=== PATIENT | male | born 1950 | race Caucasian/White ===

== ENCOUNTER 2020-01-04 12:02 | Outpatient (CLI) | payer MEDICARE, OTHER, SELFPAY ==
--- NOTE | 2020-01-04 12:57 | ECG_ITS ---
Measurements Intervals [place] Rate: 63 P: 42 OR: 209 QRS: -44 QRSD: 103 T: 34 QT: 408 QTc: 419 Interpretive Statements SINUS RHYTHM VENTRICULAR PREMATURE COMPLEXES LEFT AXIS DEVIATION BORDERLINE AV CONDUCTION DELAY BORDERLINE R WAVE PROGRESSION, ANTERIOR LEADS BASELINE ARTIFACT- I, II, III, AVR, AVF BORDERLINE ECG Electronically Signed On 01-04-2020 13:22:10 YARN BLEACHING MACHINE OPERATOR by Elijah Stinson D.O.
[2020-01-04 13:29] LABS: Basophils Absolute Auto 0.1 K/mm3 (0.0-0.1); Basophils Percent Auto 0.8 % (0.2-1.2); Eosinophils Absolute Auto 0.2 K/mm3 (0-0.3); Eosinophils Percent Auto 2.4 % (0-4.4); Hematocrit 44.1 % (42.0-52.0); Hemoglobin 14.4 g/dL (14.0-18.0); Immature Granulocyte Absolute 0.04 K/mm3 (0.00-0.031); Immature Granulocyte Percent A 0.4 % (0-0.5); Lymphocytes Percent Auto 25.2 % (18.3-44.2); Mean Corpuscular HGB Conc 32.7 g/dl (32-36); Mean Corpuscular Hemoglobin 28.6 pg (26-34); Mean Corpuscular Volume 87.7 fl (80-100); Mean Platelet Volume 9.3 fl (7.4-10.4); Monocytes Absolute Auto 0.6 K/mm3 (0.1-0.6); Monocytes Percent Auto 6.3 % (2.6-8.5); Neutrophils Absolute Auto 6.2 K/mm3 (1.3-6.7); Neutrophils Percent Auto 64.9 % (45.5-73.1); Platelet Count Result 246 k/mm3 (150-375); Red Blood Count 5.03 M/mm3 (4.6-6.20); White Blood Count 9.5 K/mm3 (4.5-10.0)
[2020-01-04 13:38] LABS: INR 2.3; Partial Thromboplastin Time 30.9 SECONDS (22.3-36.8); Prothrombin Time 25.8 Seconds (11.1-14.7)
[2020-01-04 13:39] LABS: Albumin Level 4.2 g/dL (3.5-5.1); Anion Gap 4 mmol/L (8-16); Blood Urea Nitrogen 22 mg/dL (9-20); Calcium 9.2 mg/dL (8.4-10.2); Carbon Dioxide 33 mmol/L (22-30); Chloride 103 mmol/L (98-107); Estimated Glomerular Filt Rate > 60; Glucose 83 mg/dL (75-110); Potassium 3.8 mmol/L (3.4-5.0); Sodium 140 mmol/L (137-145)
[2020-01-04 13:52] LABS: Hemoglobin A1C 5.8 % (<5.7)
[2020-01-04 14:02] LABS: Add Urine Microscopic? NO; Appearance Urine Clear (Clear); Bilirubin Urine Negative (Negative); Blood Urine Negative (Negative); Color Urine Yellow (Yellow); Glucose Urine UA Negative (Negative); Ketones Urine Negative (Negative); Leukocyte Esterase Ur Negative LEU/UL (Negative); Nitrate Urine Negative (Negative); Protein Urine Negative (Negative); Specific Grav Ur 1.023 (1.001-1.035); Urobilinogen Urine Negative mg/dL (<2.0)
[2020-01-04 14:08] LABS: Urine Cotinine NEGATIVE
== END 2020-01-04 12:03 | disposition home or self-care (01) ==
PROVIDERS: PCP Family Medicine; Visit Provider Orthopaedic Surgery
DX: M17.12 Unilateral primary osteoarthritis, left knee (principal); Z01.818 Encounter for other preprocedural examination; R94.31 Abnormal electrocardiogram [ECG] [EKG]
CPT/HCPCS: 80048; 80307; 81003; 82040; 83036; 85025; 85610; 85730; 86850; 86900; 86901; 87081; 93005

== ENCOUNTER 2020-01-06 13:08 | Emergency (ER) | payer MEDICARE, OTHER, SELFPAY ==
--- NOTE | ~2020-01-06 | XR_ITS ---
EXAMINATION: XR shoulder LT min 2V EXAM DATE: 01/06/2020 13:49 INDICATION: left shoulder pain after a fall today, pain on anterior/lat. . Initial encounter. TECHNIQUE: The following left shoulder projections obtained: frontal projection with internal rotatio n, frontal projection with external rotation, Grashey, and axillary (4+ views). There is no prior st udy for comparison. FINDINGS: No evidence of left shoulder rotator cuff calcific tendinosis. There is mild glenohumera l, moderate acromioclavicular joint primary osteoarthritis. There are no acute fractures or dislocati ons identified. There is no subcutaneous gas. The soft tissue is unremarkable. There are no radio paque foreign bodies. IMPRESSION: 1. Left shoulder exam without acute osseous findings. 2. Mild to moderate osteoarthritis. Reviewed, dictated and finalized at location B. ETTE
[2020-01-06 13:21] VITALS: BP 142/73; PULSE 78; RESP 20; TEMP 36.1; O2SAT 100
--- NOTE | 2020-01-06 13:26 | ED.GENADULT ---
HPI - General Adult General Chief complaint: Extremity Injury, Upper Stated complaint: L/arm pain Time Seen by Provider: 01/06/20 13:27 Source: patient and RN notes reviewed Mode of arrival: ambulatory Limitations: no limitations History of Present Illness HPI narrative: 69-year-old male presents with complaints of left shoulder pain for 1 day. Ta says he fell on left shoulder at 03:00am this morning while going outside with dog, hit LT shoulder on ground (grass). Denies hitting head, loss of consciousness, seizure activity, dizziness, or syncopal episode. Tylenol 2 tablets (last this morning approximately 07:45) without relief. Denies numbness or tingling. Hurts with movement of shoulder. Denies radiating pain. No loss of mobility. No swelling. Exacerbating factor is movement. No relieving factor. The dominant hand is the RIGHT HAND. Remains active. The patient reports he have not been diagnosed with COVID-19. The patient reports he is not waiting for the results of a COVID-19 lab test. The patient reports he do not have fever, chills, weakness, or fatigue. The patient reports he do not have a new or worsening cough or shortness of breath. Denies chest pain. The patient reports he do not have any rhinorrhea, congestion, loss of taste, sore throat, nausea, vomiting, abdominal pain, and diarrhea. Tolerating po intake well. Denies recent traveling. Denies concerns for COVID-19 or exposures been home with limited outdoor exposure except for essential household needs and return home. At this time, patient is not suspected of having COVID-19. Some parts of this dictation were generated by voice recognition software and may contain typographical and/or grammatical inaccuracies. Related Data Home Medications Medication Instructions Recorded Confirmed atorvastatin 10 mg tablet 10 mg PO DAILY 10/26/19 01/06/20 buspirone 10 mg tablet 10 mg PO TID 10/26/19 01/06/20 clonazepam 0.5 mg tablet 0.5 mg PO PRN PRN 10/26/19 01/06/20 sertraline 50 mg tablet 50 mg PO DAILY 10/26/19 01/06/20 warfarin 3 mg tablet 3 mg PO 4XW tablet 10/26/19 01/06/20 warfarin 4 mg tablet 4 mg PO 3XW tablet 10/26/19 01/06/20 enoxaparin 80 mg/0.8 mL 70 mg SUBCUT Q12H 01/04/20 01/06/20 subcutaneous syringe omeprazole magnesium [Prilosec OTC] 20 mg PO PRN PRN 01/04/20 01/06/20 Allergies Allergy/AdvReac Type Severity Reaction Status Date / Time No Known Allergies Allergy Verified 01/04/20 09:54 Review of Systems Review of Systems: Narrative: CONSTITUTIONAL: Denies fever, chills, sweats. EYES: Denies visual changes, redness, discharge. ENT: Denies rhinorrhea, congestion, sore throat, otalgia. CARDIOVASCULAR: Denies chest pain, palpitations, edema. RESPIRATORY: Denies dyspnea, wheezing, cough. GASTROINTESTINAL: Denies abdominal pain, nausea, vomiting, diarrhea. SKIN: Denies rash or itching. MUSCULOSKELETAL: Denies acute back pain or myalgia. Complains of LT shoulder pain. NEUROLOGIC: Denies numbness or focal weakness. PSYCHIATRIC: Denies anxiety or depression. All other systems reviewed & are unremarkable except as noted in HPI and below. [facility] Past Medical History Medical History (Updated 01/07/20 @ 00:00 by [facility] Dawilliam) Anxiety Cataract DVT of lower limb, acute Factor V Leiden Hernia History of gastroesophageal reflux (GERD) Hypercholesteremia Left knee DJD Panic attacks Vertigo Vision loss Surgical History Surgical History (Updated 01/06/20 @ 14:30 by SVETA Krause) H/O right inguinal hernia repair History of eye surgery LT cataract removed History of total right knee replacement Family History Family History (Updated 01/06/20 @ 13:56 by SVETA Krause) Father , at age 99 Old age Mother , April 03, 1997 Cancer Other Carcinoma of colon Family history of alcoholism Family history of lung cancer Social History Social History (Updated 01/06/20 @ 14
== END 2020-01-06 14:06 | disposition home or self-care (01) ==
PROVIDERS: Emergency Provider Nurse Practitioner Family; PCP Family Medicine
DX: S43.402A Unspecified sprain of left shoulder joint, initial encounter (principal); W19.XXXA Unspecified fall, initial encounter; M19.012 Primary osteoarthritis, left shoulder; F41.9 Anxiety disorder, unspecified; Z98.42 Cataract extraction status, left eye; K21.9 Gastro-esophageal reflux disease without esophagitis; E78.00 Pure hypercholesterolemia, unspecified; Z96.651 Presence of right artificial knee joint; Z79.01 Long term (current) use of anticoagulants
CPT/HCPCS: 73030; 99213; G0463

== ENCOUNTER 2020-01-09 01:08 | Outpatient (CLI) | payer MEDICARE, OTHER, SELFPAY ==
[2020-01-09 22:26] LABS: SARS-CoV-2 RNA PCR Negative
== END 2020-01-09 01:09 | disposition home or self-care (01) ==
LOC: ANHCOVIDDT 01:08
PROVIDERS: PCP Family Medicine; Visit Provider Orthopaedic Surgery
DX: Z01.812 Encounter for preprocedural laboratory examination (principal); Z20.828 Contact with and (suspected) exposure to other viral communicable diseases
CPT/HCPCS: 87635; C9803; U0003

== ENCOUNTER 2020-03-08 09:36 | Outpatient (CLI) | payer MEDICARE, OTHER, SELFPAY ==
--- NOTE | ~2020-03-08 | MR_ITS ---
EXAMINATION: MR shoulder LT wo con DATE: 03/08/2020 10:43 INDICATION: Left shoulder pain. TECHNIQUE: Magnetic resonance imaging (MRI) of the left shoulder was performed without intravenous co ntrast. Sequences included axial PD-weighted FS FSE, coronal oblique PD-weighted FS FSE and T2-weight ed FS FSE, and sagittal oblique T2-weighted FS FSE and T1-weighted FSE. COMPARISON: Left shoulder radiographs 02/29/2020 FINDINGS: Coracoacromial arch: The acromion undersurface is curved in morphology (type II). There is severe acromioclavicular joint osteoarthritis including inferiorly directed osteophytes. There is moderate subacromial/subdeltoid bu rsitis. Rotator cuff: There is a full-thickness tear of supraspinatus and infraspinatus tendons measuring 2.5 cm anterior t o posterior by 2.9 cm proximal to distal. There is mild teres minor tendinopathy. There is severe sub scapularis tendinopathy. There is no asymmetric fatty atrophy of the rotator cuff muscle bellies. The re is edema in supraspinatus muscle belly, consistent with mild strain versus subacute denervation. Biceps tendon and glenoid labrum: Biceps tendon is in bicipital groove. There is mild intra-articular biceps tendinopathy. There is a t ear of superior labrum from 10:00 to 12:00 (SLAP tear). Fluid: There is a moderate-sized glenohumeral joint effusion. Bones/cartilage: There is cartilage surface irregularity of glenoid and humeral head. IMPRESSION: 1. Full-thickness rotator cuff tear. Edema in supraspinatus muscle belly, consistent with mild strain versus subacute denervation. 2. Mild glenohumeral joint chondrosis. SLAP tear. 3. Mild intra-articular biceps tendinopathy. 4. Severe acromioclavicular joint osteoarthritis. 5. Moderate subacromial/subdeltoid bursitis and moderate-sized glenohumeral joint effusion. Reviewed, dictated and finalized at location A. GENERATING MACHINE TENDER IMPRESSION: 1. Full-thickness rotator cuff tear. Edema in supraspinatus muscle belly, consi stent with mild strain versus subacute denervation. 2. Mild glenohumeral joint chondrosis. SLAP tear. 3. Mild intra-articular biceps tendinopathy. 4. Severe acromioclavicular joint osteoarthritis. 5. Moderate subacromial/subdeltoid bursitis and moderate-sized glenohumeral олег nt effusion.
== END 2020-03-08 09:37 | disposition home or self-care (01) ==
PROVIDERS: PCP Family Medicine; Visit Provider Orthopaedic Surgery
DX: M19.012 Primary osteoarthritis, left shoulder (principal); M75.52 Bursitis of left shoulder; M75.122 Complete rotator cuff tear or rupture of left shoulder, not specified as traumatic; S43.432A Superior glenoid labrum lesion of left shoulder, initial encounter; M25.412 Effusion, left shoulder
CPT/HCPCS: 73221

== ENCOUNTER 2020-05-02 11:04 | Outpatient (CLI) | payer MEDICARE, OTHER, SELFPAY ==
[2020-05-02 11:31] LABS: Hematocrit 42.5 % (42.0-52.0)
[2020-05-02 11:40] LABS: Prothrombin Time 14.2 Seconds (11.1-14.7)
[2020-05-02 11:41] LABS: Partial Thromboplastin Time 31.5 SECONDS (22.3-36.8)
[2020-05-02 11:44] LABS: Anion Gap 8 mmol/L (8-16); Blood Urea Nitrogen 20 mg/dL (9-20); Calcium 8.8 mg/dL (8.4-10.2); Carbon Dioxide 29 mmol/L (22-30); Chloride 102 mmol/L (98-107); Estimated Glomerular Filt Rate > 60; Glucose 128 mg/dL (75-110); Potassium 3.9 mmol/L (3.4-5.0); Sodium 139 mmol/L (137-145)
== END 2020-05-02 11:05 | disposition home or self-care (01) ==
PROVIDERS: Anesthesiology; PCP Family Medicine; Visit Provider Orthopaedic Surgery
DX: E11.9 Type 2 diabetes mellitus without complications (principal); D69.9 Hemorrhagic condition, unspecified; D68.51 Activated protein C resistance; Z01.818 Encounter for other preprocedural examination
CPT/HCPCS: 36415; 80048; 85014; 85018; 85610; 85730

== ENCOUNTER → 2020-05-03 00:22 | Outpatient (CLI) | payer MEDICARE, OTHER, SELFPAY ==
[2020-05-03 19:08] LABS: SARS-CoV-2 RNA PCR Negative
== END ==
PROVIDERS: PCP Family Medicine; Visit Provider Orthopaedic Surgery
DX: Z01.812 Encounter for preprocedural laboratory examination (principal); Z20.822 Contact with and (suspected) exposure to COVID-19
CPT/HCPCS: C9803; U0003; U0005

== ENCOUNTER 2020-05-06 00:17 | Day surgery (SDC) | payer MEDICARE, OTHER, SELFPAY ==
[2020-04-29 10:56] VITALS: BMI 24.3
--- NOTE | 2020-05-05 13:45 | WPDANESEPPF ---
Anes - Initial Pre Proc Eval Procedure: Operation Date: 05/06/20 07:30 Proposed Procedures p Left Open Rotator Cuff Repair with Distal Clavicle Excision - Yovany Shepherd MD Date/Time: 05/05/20 13:45 Surgeon: Yovany Shepherd MD Pre Op Diagnosis: left shoulder rotator cuff tear Patient Data Age: 69 Gender: M Height: 1.75 m Weight: 74.85 kg Allergies Allergy/AdvReac Type Severity Reaction Status Date / Time No Known Allergies Allergy Verified 05/06/20 06:04 Home Medications Medication Instructions Recorded Confirmed Type atorvastatin 10 mg tablet 10 mg PO QAM 10/26/19 05/06/20 History buspirone 10 mg tablet 10 mg PO TID 10/26/19 05/06/20 History clonazepam 0.5 mg tablet 0.5 mg PO PRN PRN 10/26/19 04/29/20 History sertraline 50 mg tablet 50 mg PO DAILY 10/26/19 05/06/20 History warfarin 3 mg tablet 3 mg PO 3XW tablet 10/26/19 05/06/20 History warfarin 4 mg tablet 4 mg PO 4XW tablet 10/26/19 05/06/20 History enoxaparin 80 mg/0.8 mL 70 mg SUBCUT Q12H 01/04/20 05/06/20 History subcutaneous syringe omeprazole magnesium [Prilosec OTC] 20 mg PO PRN PRN 01/04/20 04/29/20 History chlorhexidine gluconate 4 % 1 applic TOPICAL ONCE #237 ml 04/04/20 04/29/20 Rx topical liquid metformin 500 mg PO BID 04/29/20 05/06/20 History Patient hx anesthesia problems: none Family hx anesthesia problems: none PMFSH Past Medical History Medical History (Updated 05/05/20 @ 13:46 by Nahum Kuo MD) Anxiety Cataract Diabetes DVT of lower limb, acute Factor V Leiden Hernia History of gastroesophageal reflux (GERD) Hypercholesteremia Left knee DJD Left shoulder pain Panic attacks Vertigo Vision loss Surgical History Surgical History H/O right inguinal hernia repair History of eye surgery LT cataract removed History of total right knee replacement Family History Family History Father , at age 99 Old age Mother , April 03, 1997 Cancer Other Carcinoma of colon Family history of alcoholism Family history of lung cancer Social History Social History Smoking status: Never smoker Tobacco type: cigarettes Second hand tobacco smoke exposure: No Smoking end date: 03/04/1967 Additional smoking assessment comments: DENIES ANY FORM OF TOBACCO/NICOTINE USE Alcohol intake: current Substance use: never Living arrangements: with family Gender identity (if verbalized by the patient): Male Spiritual care concerns: No Anes - Eval Final PreProcedure Day of Procedure 05/05/20 13:45 Patient weight: normal Heart: regular rate and rhythm Lungs: clear to auscultation and normal air movement Airway: Mallampati scale class II Neurological: alert and oriented Last oral intake: >/= 8 hours ASA classification: III Emergent: no Anesthetic plan: proceed Anesthesia type and monitoring: general ETT Informed Consent: The patient's anesthetic plan and its attendant risks and benefits were discussed with the patient/family/POA. Questions were solicited and answers provided to the satisfaction of the patient/family/POA.
[2020-05-06] VITALS (9 sets, daily range): BP systolic 122–154; BP diastolic 66–90; PULSE 59–85; RESP 13–16; TEMP 36.3–36.6; O2SAT 96–100
[2020-05-06] MEDS: LACTATED RINGERS 1,000 ML 30 ML IV CONT ×2 (06:31→10:25)
[2020-05-06] MEDS: ACETAMINOPHEN 500 MG TABLET 1000 MG PO (06:32)
[2020-05-06] MEDS: CELECOXIB 200 MG CAPSULE PO (06:32)
--- NOTE | 2020-05-06 06:48 | WPDANESPNB ---
Anes - Peripheral Nerve Block Date/Time: 05/06/20 06:48 I have discussed with the patient/family/POA the placement of a peripheral nerve block for post-operative pain management, including associated risks, benefits, complications, and side effects. Alternative methods of post-operative analgesia were detailed. Questions were solicited and answers provided to the satisfaction of the patient/family/POA. Time-Out: A pre-procedural Time-Out was completed immediately before starting the procedure and confirmed: Patient Identification, Site, Procedure, Patient Position and the Availability of Requisite Equipment. Clinical Indications: Acute post-operative pain management requested by the operative surgeon. Nerve Block Insertion Note Anes-nerve block: supraclavicular left Patient position: supine Skin prep: chlorhexidine Needle: 22 gauge, stimulating, insulated echogenic needle. Needle length: 80 mm Technique: ultrasound (in plane) Injectate: bupivacaine 0.5% with epi 5 mcg/ml (20cc) Observations: tolerated well Complications: none Procedure start time:: 725 Procedure end time:: 730
--- NOTE | 2020-05-06 07:18 | WPDHPUPDATE1 ---
History and Physical Update Update Date/Time: 05/06/20 07:18 History and Physical has been reviewed, including an updated exam of the patient. There are NO changes in the patient's condition. Risks, benefits, and alternatives have been discussed and questions answered. Patient agrees to proceed with procedure.
[2020-05-06] MEDS: ceFAZolin 2 GM/D5W 50 ML 2 GM/50 ML BAG IVPB (07:32)
--- NOTE | 2020-05-06 10:12 | PM.PROC ---
Procedure Note - Detailed Date of procedure: 05/06/20 Pre-op diagnosis: left shoulder rotator cuff tear Post-op diagnosis: same Procedure performed: REPAIR OF LEFT ROTATOR CUFF Description of procedure: THE PATIENT WAS TAKEN TO THE OPERATING ROOM AND THEN INTUBATED AND PLACED IN THE BEACH CHAIR POSITION. THE LEFT UPPER EXTREMITY WAS PREPPED AND DRAPED IN THE NORMAL STERILE FASHION. AN INCISION WAS MADE IN BETWEEN THE ADELSO-LATERAL ACROMION AND THE AC JOINT. DISSECTION CONTINUED DOWN THROUGH THE SUB CUTANEOUS LAYER UNTIL THE AC JOINT WAS IDENTIFIED AND INCISED. THE JOINT WAS SEVERELY ARTHRITIC. A DISTAL CLAVICLE RESECTION WAS PREFORMED REMOVING ABOUT O.5 CM OF BONE. THE WOUND WAS IRRIGATED AND THE CAPSULE WAS REPAIRED WITH 0 VICRYL SUTURE. NEXT, THE FASCIA WAS IDENTIFIED AND A MINI OPEN INCISION WAS MADE THROUGH THE DELTOID MUSCLE EXPOSING THE SUBACROMIAL SPACE. A LIMITED ACROMIOPLASTY WAS PREFORMED. THE ROTATOR CUFF WAS IDENTIFIED. THERE WAS A FULL THICKNESS TEAR TO THE ENTIRE CUFF ND THE CUFF WAS RETRACTED. THE CUFF EDGES WERE THEN SECURED WITH A KOKER CLAMP. THERE WAS A LOT OF SCAR AND ADHESIONS ABOUT THE BURSAE. DIGITAL ADHESIOLYSIS WAS PREFORMED AND THIS FREED UP THE CUFF QUITE A BIT MORE. THE CUFF EDGES NOW WERE NOW APPROXIMATED TO THE EDGE OF THE GREATER TUBEROSITY. BURSAE TISSUE WAS RESECTED. THE GREATER TUBEROSITY WAS DEBRIDED TO BLEEDING BONE. 3 ATHREX 5.5 SUTURE ANCHORS WERE PLACED IN TO GOOD BONE AND HAD VERY GOOD BITES. ANDREA-YAKOV TYPE REPAIRS WERE DONE TO THE ROTATOR CUFF AND THERE WAS GOOD APPROXIMATION TO THE GREATER TUBEROSITY. THE REPAIR WAS EXCELLENT. THERE WAS NO IMPINGEMENT ON THE REPAIR FROM THE ACROMION WITH RANGE OF MOTION. THE WOUND WAS IRRIGATED WITH COPIOUS AMOUNTS OF ANTIBIOTIC SOLUTION. THE DELTOID MUSCLE WAS REPAIRED WITH #2 FIBER WIRE AND 0 VICRYL SUTURE. THE SUBCUTANEOUS LAYER WAS APPROXIMATED WITH 2-0 VICRYL. THE SKIN WAS APPROXIMATED WITH 3-0 QUIL AND DERMABOND. STERILE DRESSING WAS APPLIED. PATIENT WAS EXTUBATED. Anesthesia: GETA Surgeon: Yovany Shepherd MD Estimated blood loss (mL): 20 Complications: No immediate complications Condition: stable Disposition: PACU
[2020-05-06 10:56] LABS: Glucose Point of Care 123 (65-105)
[2020-05-06] MEDS: fentaNYL CITRATE INJ (*CRX) 100 MCG/2 ML VIAL 25 MCG IV PUSH (11:05)
== END 2020-05-06 12:35 | disposition home or self-care (01) ==
PROVIDERS: PCP Family Medicine; Visit Provider Orthopaedic Surgery
PROC: (CPT 23420; principal; 2020-05-06 07:30)
DX: S46.012A Strain of muscle(s) and tendon(s) of the rotator cuff of left shoulder, initial encounter (principal); W19.XXXA Unspecified fall, initial encounter; M19.012 Primary osteoarthritis, left shoulder; G89.18 Other acute postprocedural pain; E11.9 Type 2 diabetes mellitus without complications; E78.00 Pure hypercholesterolemia, unspecified; D68.51 Activated protein C resistance; F41.9 Anxiety disorder, unspecified; K21.9 Gastro-esophageal reflux disease without esophagitis; Z79.01 Long term (current) use of anticoagulants; Z79.84 Long term (current) use of oral hypoglycemic drugs; Z86.718 Personal history of other venous thrombosis and embolism; Z87.891 Personal history of nicotine dependence
CPT/HCPCS: 23120; 23410; 64415; 82948; A9270; C1713; J0690; J1100; J2250; J2405; J2704; J3010; J7120

== ENCOUNTER 2020-06-14 13:23 | Outpatient (CLI) | payer MEDICARE, OTHER, SELFPAY ==
--- NOTE | ~2020-06-14 | XR_ITS ---
[id number]_CR DATE: 06/14/2020 13:42 INDICATION: Lower left lateral rib pain following fall 3 days ago TECHNIQUE: PA chest. 3 views of the left ribs. COMPARISON: None FINDINGS: Normal heart size. Mild aortic unfolding. No hilar or mediastinal enlargement. Minimal atelectasis or fibrotic change at the lung bases. No pulmonary consolidation. No pleural effu kwesi or pulmonary vascular congestion or pneumothorax. Mild levoscoliosis as well as moderate degenerative spurring of the thoracic spine. No left rib fracture or bone destruction is detected. IMPRESSION: No evidence of left rib fracture Reviewed, dictated and finalized at Location A. Reviewed, dictated and finalized at location A.
== END 2020-06-14 13:24 | disposition home or self-care (01) ==
PROVIDERS: PCP Family Medicine; Visit Provider Family Medicine
DX: R07.81 Pleurodynia (principal)
CPT/HCPCS: 71101

== ENCOUNTER 2020-12-05 08:04 | Outpatient (CLI) | payer MEDICARE, OTHER, SELFPAY ==
[2020-12-05 09:22] LABS: Add Urine Microscopic? NO; Appearance Urine Clear (Clear); Basophils Absolute Auto 0.1 K/mm3 (0.0-0.1); Basophils Percent Auto 1.2 % (0.2-1.2); Bilirubin Urine Negative (Negative); Blood Urine Negative (Negative); Color Urine Yellow (Yellow); Eosinophils Absolute Auto 0.3 K/mm3 (0-0.3); Glucose Urine UA Negative (Negative); Hematocrit 44.3 % (42.0-52.0); Hemoglobin 14.5 g/dL (14.0-18.0); Immature Granulocyte Absolute 0.03 K/mm3 (0.00-0.031); Immature Granulocyte Percent A 0.4 % (0-0.5); Ketones Urine Negative (Negative); Leukocyte Esterase Ur Negative LEU/UL (Negative); Lymphocytes Absolute Auto 2.29 K/mm3 (0.9-3.2); Lymphocytes Percent Auto 29.5 % (18.3-44.2); Mean Corpuscular HGB Conc 32.7 g/dl (32-36); Mean Corpuscular Hemoglobin 29.5 pg (26-34); Mean Platelet Volume 9.1 fl (7.4-10.4); Monocytes Absolute Auto 0.8 K/mm3 (0.1-0.6); Monocytes Percent Auto 9.7 % (2.6-8.5); Neutrophils Absolute Auto 4.3 K/mm3 (1.3-6.7); Neutrophils Percent Auto 55.2 % (45.5-73.1); Nitrate Urine Negative (Negative); Platelet Count Result 243 k/mm3 (150-375); Protein Urine Negative (Negative); Red Blood Count 4.92 M/mm3 (4.6-6.20); Red Cell Distribution Width 13.2 % (11.5-14.5); Specific Grav Ur 1.018 (1.001-1.035); Urobilinogen Urine Negative mg/dL (<2.0); White Blood Count 7.8 K/mm3 (4.5-10.0)
[2020-12-05 09:26] LABS: Urine Cotinine NEGATIVE
[2020-12-05 09:28] LABS: Albumin Level 4.5 g/dL (3.5-5.1); Anion Gap 7 mmol/L (8-16); Blood Urea Nitrogen 19 mg/dL (9-20); Carbon Dioxide 29 mmol/L (22-30); Chloride 102 mmol/L (98-107); Estimated Glomerular Filt Rate > 60; Glucose 77 mg/dL (65-110); Sodium 138 mmol/L (137-145)
[2020-12-05 09:29] LABS: INR 2.1; Partial Thromboplastin Time 28.7 SECONDS (22.3-36.8); Prothrombin Time 22.9 Seconds (11.1-14.7)
[2020-12-05 09:38] LABS: Hemoglobin A1C 5.8 % (<5.7)
== END 2020-12-05 08:05 | disposition home or self-care (01) ==
LOC: ANHSURGERY 08:08
PROVIDERS: PCP Family Medicine; Visit Provider Orthopaedic Surgery
DX: Z01.818 Encounter for other preprocedural examination (principal); M17.12 Unilateral primary osteoarthritis, left knee
CPT/HCPCS: 80048; 80307; 81003; 82040; 83036; 85025; 85610; 85730; 86850; 86900; 86901; 87081

== ENCOUNTER 2020-12-14 00:49 | Day surgery (SDC) | payer MEDICARE, OTHER, SELFPAY ==
[2020-12-05 08:18] VITALS: BMI 26.2
[2020-12-05 08:53] VITALS: BP 135/60; PULSE 64; RESP 16; TEMP 37.3; O2SAT 99
[2020-12-14] VITALS (15 sets, daily range): BP systolic 117–180; BP diastolic 60–109; PULSE 57–82; RESP 10–20; TEMP 36–36.7; O2SAT 95–100
--- NOTE | ~2020-12-14 | XR_ITS ---
EXAMINATION: XR knee LT 2V EXAM DATE: 12/14/2020 10:03 INDICATION: Left knee total arthroplasty. TECHNIQUE: Portable frontal, crosstable lateral projections left knee obtained immediately following arthroplasty performed by orthopedic surgeon Yovany Shepherd MD. FINDINGS: Patient is status post total knee arthroplasty. The orthopedic hardware is in expected po sition. There are richard overlying the anterior aspect of the knee. There is small amount of subcut aneous gas, gas within the knee joint space. Overlying soft tissue swelling. Correlate with procedu re note. IMPRESSION: Status post total left knee arthroplasty. Reviewed, dictated and finalized at location A.
[2020-12-14] MEDS: ACETAMINOPHEN 500 MG TABLET 1000 MG PO (06:34)
--- NOTE | 2020-12-14 06:59 | WPDANESEPPF ---
Anes - Initial Pre Proc Eval Procedure: Operation Date: 12/14/20 07:30 Proposed Procedures p Left Total Knee Arthroplasty(Left) - Yovany Shepherd MD Date/Time: 12/14/20 06:59 Surgeon: Yovany Shepherd MD Pre Op Diagnosis: left knee djd Patient Data Age: 70 Gender: M Height: 1.73 m Weight: 76.4 kg Last Vital Signs Temp 37.3 C 12/05/20 08:53 Pulse 64 12/05/20 08:53 Resp 16 12/05/20 08:53 BP 135/60 12/05/20 08:53 Pulse Ox 99 12/05/20 08:53 Allergies Allergy/AdvReac Type Severity Reaction Status Date / Time No Known Allergies Allergy Verified 12/14/20 06:36 Home Medications Medication Instructions Recorded Confirmed Type atorvastatin 10 mg tablet 10 mg PO QAM 10/26/19 12/14/20 History buspirone 10 mg tablet 10 mg PO TID 10/26/19 12/14/20 History clonazepam 0.5 mg tablet 0.5 mg PO PRN PRN 10/26/19 12/14/20 History sertraline 50 mg tablet 25 mg PO QAM 10/26/19 12/14/20 History warfarin 4 mg tablet 4 mg PO DAILY tablet 10/26/19 12/14/20 History omeprazole magnesium [Prilosec OTC] 20 mg PO PRN PRN 01/04/20 12/14/20 History metformin 500 mg PO BID 04/29/20 12/14/20 History enoxaparin 80 mg SUBCUT BID 12/14/20 12/14/20 History Patient hx anesthesia problems: none Family hx anesthesia problems: other (son heart stopped eye surgery) Results Review: All pre-operative results and documents have been reviewed as part of the pre-operative evaluation. [facility] Past Medical History Medical History Anxiety Cataract Diabetes DVT of lower limb, acute Factor V Leiden Hernia History of gastroesophageal reflux (GERD) Hypercholesteremia Left knee DJD Left shoulder pain Panic attacks Vertigo Vision loss Surgical History Surgical History H/O right inguinal hernia repair History of eye surgery LT cataract removed History of total right knee replacement Family History Family History Father , at age 99 Old age Mother , April 03, 1997 Cancer Other Carcinoma of colon Family history of alcoholism Family history of lung cancer Social History Social History Tobacco type: cigarettes Second hand tobacco smoke exposure: No Smoking end date: 03/04/1967 Additional smoking assessment comments: DENIES ANY FORM OF TOBACCO/NICOTINE USE Alcohol intake: current Substance use: never Living arrangements: with family Gender identity (if verbalized by the patient): Male Sexual Orientation (if Verbalized by the Patient): Straight or Heterosexual Spiritual care concerns: No Anes - Eval Final PreProcedure Day of Procedure 12/14/20 06:59 Patient weight: normal Heart: regular rate and rhythm Lungs: decreased breath sounds Airway: Mallampati scale class 1 Neurological: alert and oriented Last oral intake: >/= 8 hours ASA classification: III Emergent: no Anesthetic plan: proceed Anesthesia type and monitoring: general LMA and standard monitoring Results Review: All pre-operative results and documents have been reviewed as part of the pre-operative evaluation. Informed Consent: The patient's anesthetic plan and its attendant risks and benefits were discussed with the patient/family/POA. Questions were solicited and answers provided to the satisfaction of the patient/family/POA.
[2020-12-14] MEDS: LACTATED RINGERS 1,000 ML 30 ML IV CONT ×2 (07:05→09:35)
[2020-12-14 07:07] LABS: Glucose Point of Care 97 mg/dl (65-105)
[2020-12-14] MEDS: TRANEXAMIC ACID 1,000MG/ISO100 1,000 MG/100 ML BAG 200 MG IVPB (07:12)
--- NOTE | 2020-12-14 07:23 | WPDHPUPDATE1 ---
History and Physical Update Update Date/Time: 12/14/20 07:23 History and Physical has been reviewed, including an updated exam of the patient. There are NO changes in the patient's condition. Risks, benefits, and alternatives have been discussed and questions answered. Patient agrees to proceed with procedure.
[2020-12-14] MEDS: ceFAZolin 2 GM/D5W 50 ML 2 GM/50 ML BAG IVPB ×3 (07:35→22:37)
--- NOTE | 2020-12-14 07:35 | WPDANESPNB ---
Anes - Peripheral Nerve Block Date/Time: 12/14/20 07:35 I have discussed with the patient/family/POA the placement of a peripheral nerve block for post-operative pain management, including associated risks, benefits, complications, and side effects. Alternative methods of post-operative analgesia were detailed. Questions were solicited and answers provided to the satisfaction of the patient/family/POA. Time-Out: A pre-procedural Time-Out was completed immediately before starting the procedure and confirmed: Patient Identification, Site, Procedure, Patient Position and the Availability of Requisite Equipment. Clinical Indications: Acute post-operative pain management requested by the operative surgeon. Nerve Block Insertion Note Anes-nerve block: adductor canal Patient position: supine Skin prep: chlorhexidine Needle: 22 gauge, stimulating, insulated echogenic needle. Needle length: 80 mm Technique: ultrasound Technique comment: fent 100mcg Injectate: bupivacaine 0.5% with epi 5 mcg/ml (30 ml no epi) and dexamethasone (mg) (4) Observations: tolerated well Complications: none Procedure start time:: 726 Procedure end time:: 732
[2020-12-14] MEDS: GENTAMICIN BONE CEMENT REFOBACIN 1 EACH TOPICAL (08:37)
[2020-12-14] MEDS: TRANEXAMIC ACID 1,000 MG/10 ML AMPUL 1000 MG IV PUSH (09:01)
--- NOTE | 2020-12-14 09:34 | W.PM.PROC2 ---
Procedure Note - Detailed Date of Procedure 12/14/20 Pre-op Diagnosis left knee djd Post-op Diagnosis same Procedure Performed L TKA Surgeon Yovany Shepherd MD Anesthesia general Description of Procedure THE LEFT KNEE WAS PREPPED AND DRAPED IN THE STERILE FASHION. THERE WAS A 10 DEGREE FLEXION CONTRACTURE. A MIDLINE SKIN INCISION WAS MADE. A MEDIAL PARAPATELLAR ARTHROTOMY WAS MADE. THE PATELLA WAS EVERTED. THERE WAS TRICOMPARTMENT DJD. THERE WAS MINIMAL PATELLA DJD. AN INTRAMEDULLARY JOSE WAS PLACED IN THE FEMUR. A DISTAL FEMORAL CUT WAS MADE IN 5 DEGREES OF VALGUS REMOVING APPROXIMATELY 9 MM OF BONE FROM THE DISTAL FEMUR. THE FEMUR WAS SIZED TO 62.5. A 62.5 FEMORAL CUTTING BLOCK WAS PLACED IN 3 DEGREES OF EXTERNAL ROTATION AND IN ALIGNMENT WITH FER'S LINE AND THE TRANSEPICONDYLAR AXIS. ANTERIOR POSTERIOR AND CHAMFER CUTS WERE MADE. THE CUTS WERE EXCELLENT. NEXT AN INTRAMEDULLARY CUTTING GUIDE WAS PLACED IN THE TIBIA. A TRANS TIBIAL CUT WAS MADE ALONG THE LONG AXIS OF THE TIBIA. APPROXIMATELY 10 MM OF BONE WAS REMOVED FROM THE HIGH SIDE OF THE TIBIA. THE TIBIA WAS THEN PLANED TO A SMOOTH SURFACE. POSTERIOR FEMORAL OSTEOPHYTES WERE REMOVED FROM THE FEMORAL CONDYLES. A 71 TIBIAL TRIAL WAS PLACED IN ALIGNMENT WITH THE 1/3 MEDIAL ASPECT OF THE TIBIAL TUBERCLE. THEN A 62.5 FEMORAL TRIAL COMPONENT WAS PLACED. BOTH HAD EXCELLENT FITS. EVENTUALLY A 10 MM CR POLYETHYLENE TRIAL COMPONENT WAS PLACED. THE KNEE WAS TAKEN THROUGH A RANGE OF MOTION. THE KNEE CAME OUT TO FULL EXTENSION. THERE WAS NO ABNORMAL TILT TO THE PATELLA. THERE WAS GOOD A/P AND VARUS/VALGUS STABILITY. THERE WAS NO EXCESSIVE ROLL BACK WITH FLEXION. THE TRIAL COMPONENTS WERE REMOVED. THEN A 62.5 FEMORAL COMPONENT AND 71 TIBIAL COMPONENT WITH A 1O CR POLYETHYLENE COMPONENT WERE CEMENTED INTO PLACE. ONCE THE CEMENT WAS HARD THE KNEE WAS TAKEN THROUGH A ROM AGAIN AND FOUND TO BE STABLE WITH NO PATELLA TILT NO EXCESSIVE ROLL BACK WITH FLEXION AND GOOD STABILITY WITH COMPLETE AND FULL EXTENSION. THE KNEE WAS IRRIGATED WITH STERILE BETADINE AND WATER FOR ABOUT 3 MINUTES. THE BLEEDERS WERE CAUTERIZED. THE ARTHROTOMY WAS REPAIRED WITH NUMBER 1 VICRYL. THE SUB CUTANEOUS LAYER WITH 2-0 VICRYL AND THE SKIN WITH MIKEL. THE WOUND WAS WASHED AND A STERILE DRESSING WAS APPLIED. PATIENT WAS EXTUBATED. Estimated Blood Loss -150.0 Pathology none sent Complications No immediate complications Condition stable Disposition PACU
[2020-12-14] MEDS: fentaNYL CITRATE INJ (*CRX) 100 MCG/2 ML VIAL 25 MCG IV PUSH ×6 (09:45→10:35)
[2020-12-14 09:59] LABS: Glucose Point of Care 113 mg/dl (65-105)
--- NOTE | 2020-12-14 12:05 | ADMGEN ---
This patient, Ta Landers, was admitted to Medical Room 248-. Patient/family oriented to hospital policies and general routines including ID bracelet, bed and alarms, visiting hours, pain management, procedures, bathroom and other care routines, personal items, smoking policy, room service/diet, and visiting hours. Information on how to activate the Rapid Response Team has been discussed. Patient/Family are encouraged to report perceived risks to care and to ask questions if they do not understand what they are told or what they should do.
[2020-12-14] MEDS: busPIRone HCL 10 MG TABLET PO ×2 (12:54→17:36)
[2020-12-14] MEDS: oxyCODONE/ACETAMINOPHEN (*CRX) 5-325 MG TABLET 1 TABLET PO ×2 (12:54→18:47)
--- NOTE | 2020-12-14 15:20 | P.CONIM_ITS ---
Assessment and Plan Assessment and plan (1) Status post total left knee replacement: Code(s): Z96.652 - Presence of left artificial knee joint Status: Acute Assessment and Plan: * Status post left knee replacement with Dr. Carroll * POD 0 * Management by ortho * Pain control: oxycodone 5/325mg i tab PO Q4hr, Roxicodone 10mg PO Q4hr * Antiemetic: Zofran 4mg IV Q4hr * DVT: Coumadin * Antibiotics: Cefazolin 2gm IV Q8hr x 3bags * Bowel management: Colace 100mg PO BID * PT/OT (2) Left knee DJD: Qualifiers: Osteoarthritis type: primary Qualified Code(s): M17.12 - Unilateral primary osteoarthritis, left knee Code(s): M17.12 - Unilateral primary osteoarthritis, left knee Status: Acute Assessment and Plan: * See above (3) Diabetes: Code(s): E11.9 - Type 2 diabetes mellitus without complications Status: Acute Assessment and Plan: * POC glucose 113 * Continue home metformin * Accu checks * Sliding scale insulin * Trend glucose * Hypoglycemia protocol * adjust medications as needed (4) Anxiety: Code(s): F41.9 - Anxiety disorder, unspecified Status: Acute Assessment and Plan: * Continue home clonazepam 0.5mg PO PRN, Buspar 10mg PO TID * Trend mood (5) Hyperlipidemia: Code(s): E78.5 - Hyperlipidemia, unspecified Status: Acute Assessment and Plan: * Continue atorvastatin 10mg PO daily * Consider lipid panel in the am * Encourage low fat diet (6) History of deep vein thrombosis (DVT) of lower extremity: Code(s): Z86.718 - Personal history of other venous thrombosis and embolism Status: Acute Assessment and Plan: * Hx of DVT in the lower extremity * On warfarin at home * Continue 4mg PO daily * Trend PT/PTT/INR * Adjust medications to maintain INR of 2-3 (7) GERD (gastroesophageal reflux disease): Code(s): K21.9 - Gastro-esophageal reflux disease without esophagitis Status: Acute Assessment and Plan: * Take omeprazole 20mg PO Daily at home * Protonix 40mg PO Daily order Additional Plan Thank you for asking us to consult. Please call if you should need anything. hospitalist is consult for medical management post left total knee replacement, as observational status HPI Data of Consult Consult date: 12/14/20 Requesting Physician: Yovany Shepherd MD Primary Care Provider: Ernst Mcneill, Consult Narrative Narrative: Ta Landers is a 70 year old male with past medical condition of anxiety, diabetes, DVT, and HLD for an elective left total knee replacement by Dr. Shepherd on 12/14/20. Patient is sitting in the chair, and was in really good spirits. He does have some pain, but he stated that the block has not wore off yet. He had the right leg done in 2016 so he knows what to expect. He wants to go to rehab at [facility]. He denies chest pain, shortness of breath, fevers, sweats, or chills. He did state that he has been dealing with this pain since 2014. Review of Systems Review of Systems: All systems reviewed & are unremarkable except as noted in HPI and below PMFSH Past Medical History Medical History Anxiety Cataract Diabetes DVT of lower limb, acute Factor V Leiden Hernia History of gastroesophageal reflux (GERD)
--- NOTE | 2020-12-14 15:20 | PM.IMCN ---
Assessment and Plan Assessment and plan (1) Status post total left knee replacement: Code(s): Z96.652 - Presence of left artificial knee joint Status: Acute Assessment and Plan: Status post left knee replacement with Dr. Carroll POD 0 Management by ortho Pain control: oxycodone 5/325mg i tab PO Q4hr, Roxicodone 10mg PO Q4hr Antiemetic: Zofran 4mg IV Q4hr DVT: Coumadin Antibiotics: Cefazolin 2gm IV Q8hr x 3bags Bowel management: Colace 100mg PO BID PT/OT (2) Left knee DJD: Qualifiers: Osteoarthritis type: primary Qualified Code(s): M17.12 - Unilateral primary osteoarthritis, left knee Code(s): M17.12 - Unilateral primary osteoarthritis, left knee Status: Acute Assessment and Plan: See above (3) Diabetes: Code(s): E11.9 - Type 2 diabetes mellitus without complications Status: Acute Assessment and Plan: POC glucose 113 Continue home metformin Accu checks Sliding scale insulin Trend glucose Hypoglycemia protocol adjust medications as needed (4) Anxiety: Code(s): F41.9 - Anxiety disorder, unspecified Status: Acute Assessment and Plan: Continue home clonazepam 0.5mg PO PRN, Buspar 10mg PO TID Trend mood (5) Hyperlipidemia: Code(s): E78.5 - Hyperlipidemia, unspecified Status: Acute Assessment and Plan: Continue atorvastatin 10mg PO daily Consider lipid panel in the am Encourage low fat diet (6) History of deep vein thrombosis (DVT) of lower extremity: Code(s): Z86.718 - Personal history of other venous thrombosis and embolism Status: Acute Assessment and Plan: Hx of DVT in the lower extremity On warfarin at home Continue 4mg PO daily Trend PT/PTT/INR Adjust medications to maintain INR of 2-3 (7) GERD (gastroesophageal reflux disease): Code(s): K21.9 - Gastro-esophageal reflux disease without esophagitis Status: Acute Assessment and Plan: Take omeprazole 20mg PO Daily at home Protonix 40mg PO Daily order Additional Plan Thank you for asking us to consult. Please call if you should need anything. hospitalist is consult for medical management post left total knee replacement, as observational status HPI Data of Consult Consult date: 12/14/20 Requesting Physician: Yovany Shepherd MD Primary Care Provider: Ernst Mcneill, Consult Narrative Narrative: Ta Landers is a 70 year old male with past medical condition of anxiety, diabetes, DVT, and HLD for an elective left total knee replacement by Dr. Shepherd on 12/14/20. Patient is sitting in the chair, and was in really good spirits. He does have some pain, but he stated that the block has not wore off yet. He had the right leg done in 2016 so he knows what to expect. He wants to go to rehab at [facility]. He denies chest pain, shortness of breath, fevers, sweats, or chills. He did state that he has been dealing with this pain since 2015. Review of Systems Review of Systems: All systems reviewed & are unremarkable except as noted in HPI and below PMFSH Past Medical History Medical History Anxiety Cataract Diabetes DVT of lower limb, acute Factor V Leiden Hernia History of gastroesophageal reflux (GERD) Hypercholesteremia Left knee DJD Left shoulder pain Panic attacks Vertigo Vision loss Surgical History Surgical History H/O right inguinal hernia repair History of eye surgery LT cataract removed History of total right knee replacement Family History Family History Father , at age 99 Old age Mother , April 03, 1997 Cancer Other Carcinoma of colon Family history of alcoholism Family history of lung cancer
[2020-12-14] MEDS: WARFARIN (*PBKC) 4 MG TABLET PO (17:35)
[2020-12-14] MEDS: CELECOXIB 200 MG CAPSULE PO (17:36)
[2020-12-14] MEDS: metFORMIN HCL 500 MG TABLET PO (17:36)
[2020-12-14] MEDS: DOCUSATE SODIUM 100 MG CAPSULE PO (17:36)
[2020-12-15 00:52] VITALS: BP 109/57; PULSE 65; RESP 20; TEMP 36.5; O2SAT 96
[2020-12-15 05:00] VITALS: BP 119/60; PULSE 62; RESP 18; TEMP 36.8; O2SAT 98
[2020-12-15 05:49] LABS: Basophils Absolute Auto 0.1 K/mm3 (0.0-0.1); Basophils Percent Auto 0.4 % (0.2-1.2); Eosinophils Percent Auto 0.2 % (0-4.4); Immature Granulocyte Absolute 0.05 K/mm3 (0.00-0.031); Immature Granulocyte Percent A 0.4 % (0-0.5); Lymphocytes Absolute Auto 1.65 K/mm3 (0.9-3.2); Lymphocytes Percent Auto 14.3 % (18.3-44.2); Mean Corpuscular HGB Conc 32.4 g/dl (32-36); Mean Corpuscular Hemoglobin 29.3 pg (26-34); Mean Corpuscular Volume 90.5 fl (80-100); Mean Platelet Volume 9.1 fl (7.4-10.4); Monocytes Absolute Auto 1.5 K/mm3 (0.1-0.6); Monocytes Percent Auto 13.1 % (2.6-8.5); Neutrophils Absolute Auto 8.3 K/mm3 (1.3-6.7); Neutrophils Percent Auto 71.6 % (45.5-73.1); Platelet Count Result 177 k/mm3 (150-375); Red Blood Count 4.09 M/mm3 (4.6-6.20); Red Cell Distribution Width 13.6 % (11.5-14.5); White Blood Count 11.5 K/mm3 (4.5-10.0)
[2020-12-15 05:57] LABS: INR 1.1; Prothrombin Time 13.9 Seconds (11.1-14.7)
[2020-12-15 06:04] LABS: Anion Gap 7 mmol/L (8-16); Blood Urea Nitrogen 23 mg/dL (9-20); Calcium 8.5 mg/dL (8.4-10.2); Carbon Dioxide 28 mmol/L (22-30); Chloride 101 mmol/L (98-107); Estimated CRCL calculation 64 ml/min; Estimated Glomerular Filt Rate > 60; Glucose 123 mg/dL (65-110); Potassium 4.3 mmol/L (3.4-5.0); Sodium 136 mmol/L (137-145)
[2020-12-15] MEDS: ceFAZolin 2 GM/D5W 50 ML 2 GM/50 ML BAG IVPB (06:04)
--- NOTE | 2020-12-15 07:14 | WPDANESPN ---
Anes - Prog Note Post-Op Date/Time: 12/15/20 07:14 Cardiovascular status: normal Respiratory status: normal Airway patency: baseline Mental status: baseline Post-Op hydration status: normal Vital Signs: Last Vital Signs Temp 98.2 F 12/15/20 05:00 Pulse 62 12/15/20 05:00 Resp 18 12/15/20 05:00 BP 119/60 12/15/20 05:00 Pulse Ox 98 12/15/20 05:00 Pain Score (VAS): 03/13 I/O: Intake & Output 12/14/20 12/14/20 12/15/20 15:59 23:59 07:59 Intake Total 1390 540 50 Output Total 400 248 Balance 1390 140 -198 Laboratory Tests 12/15/20 05:35 12/15/20 05:35 12/14/20 12/14/20 12/15/20 06:53 09:40 05:35 WBC 11.5 H RBC 4.09 L Hgb 12.0 L Hct 37.0 L MCV 90.5 MCH 29.3 MCHC 32.4 RDW 13.6 Plt Count 177 MPV 9.1 Immature Gran % (Auto) 0.4 Neut % (Auto) 71.6 Lymph % (Auto) 14.3 L [place] % (Auto) 13.1 H Eos % (Auto) 0.2 Baso % (Auto) 0.4 Lymph # (Auto) 1.65 [place] # (Auto) 1.5 H Eos # (Auto) 0.0 Baso # (Auto) 0.1 Abs Immat Gran (auto) 0.05 H Absolute Neuts (auto) 8.3 H Absolute Nucleated RBC 0.0 Nucleated RBC % 0.0 PT 13.0 INR 1.0 Sodium Potassium Chloride Carbon Dioxide Anion Gap BUN Creatinine Estim Creat Clear Calc Estimated GFR Glucose POC Capillary Glucose 113 H Calcium Magnesium 12/15/20 12/15/20 05:35 05:35 WBC RBC Hgb Hct MCV MCH MCHC RDW Plt Count MPV Immature Gran % (Auto) Neut % (Auto) Lymph % (Auto) [place] % (Auto) Eos % (Auto) Baso % (Auto) Lymph # (Auto) [place] # (Auto) Eos # (Auto) Baso # (Auto) Abs Immat Gran (auto) Absolute Neuts (auto) Absolute Nucleated RBC Nucleated RBC % PT 13.9 INR 1.1 Sodium 136 L Potassium 4.3 Chloride 101 Carbon Dioxide 28 Anion Gap 7 L BUN 23 H Creatinine 0.90 Estim Creat Clear Calc 64 Estimated GFR > 60 Glucose 123 H POC Capillary Glucose Calcium 8.5 Magnesium 2.0 Post-procedural complaints: none Patient Feedback: Patient satisfied with anesthetic care.
[2020-12-15 07:49] LABS: Glucose Point of Care 115 mg/dl (65-105)
[2020-12-15] MEDS: DOCUSATE SODIUM 100 MG CAPSULE PO (08:09)
[2020-12-15] MEDS: PANTOPRAZOLE 40 MG TABLET PO (08:09)
[2020-12-15] MEDS: metFORMIN HCL 500 MG TABLET PO (08:09)
[2020-12-15] MEDS: busPIRone HCL 10 MG TABLET PO ×2 (08:10→12:06)
[2020-12-15] MEDS: oxyCODONE/ACETAMINOPHEN (*CRX) 5-325 MG TABLET 1 TABLET PO ×2 (08:10→12:05)
[2020-12-15] MEDS: SERTRALINE HCL 25 MG TABLET PO (08:10)
[2020-12-15] MEDS: ATORVASTATIN 10 MG TABLET PO (08:10)
[2020-12-15] MEDS: CELECOXIB 200 MG CAPSULE PO (08:10)
[2020-12-15 09:00] VITALS: BP 130/50; PULSE 70; RESP 18; TEMP 37.3; O2SAT 100
--- NOTE | 2020-12-15 09:15 | PM.PNORT ---
Progress Note: A&P Assessment and Plan (1) Status post total left knee replacement: Code(s): Z96.652 - Presence of left artificial knee joint Status: Acute Assessment and Plan: POD #1: Left TKA Continue PT/OT. WBAT. Walker. Fall Risk. Continue pain control. Ice. DVT prophylaxis. SCDs. Incentive Spirometry. Monitor dressing. Change prior to d/c. Dispo: Home with Home Health pending progress with PT/OT. (2) Diabetes: Code(s): E11.9 - Type 2 diabetes mellitus without complications Status: Acute Assessment and Plan: Monitor blood glucose levels. Diabetic diet. Medicaiton per hospitalist service. (3) History of deep vein thrombosis (DVT) of lower extremity: Code(s): Z86.718 - Personal history of other venous thrombosis and embolism Status: Acute Assessment and Plan: Warfarin resumed by Dr. Shepherd Subjective Subjective Date/Time Seen: 12/15/20 09:15 Post Op day: 1 Principal diagnosis: Left Knee DJD Interval history: POD #1: Left TKA No new concerns. Pain well controlled. Hopeful for d/c home today. Review of Systems Review of Systems: All systems reviewed & are unremarkable except as noted in HPI and below Constitutional: Constitutional: Denies fever(s) and Denies headache(s) ENT: Denies headache(s) Cardiovascular: Cardiovascular: Denies chest pain, Denies diaphoresis, Denies palpitations and Denies dyspnea Respiratory: Respiratory: Denies dyspnea Gastrointestinal: Gastrointestinal: Denies abdominal pain, Denies constipation, Denies nausea and Denies vomiting Genitourinary: Genitourinary: Denies dysuria and Reports nocturia Musculoskeletal: Musculoskeletal: Reports arthralgias (Left Knee ), Reports joint swelling (Left Knee ) and Reports limited range of motion (ROM limited due to recent surgical intervention LEFT Knee ) Neurologic: Denies headache(s) Endocrine: Endocrine: Denies palpitations Exam Const: General: comfortable and no acute distress Resp: Effort & Inspection: normal respiratory effort Cardio: Rate: regular rate Rhythm: regular rhythm GI: GI Palp: Yes Soft to palpation, No Tenderness to palpation present (GI) and No Guarding due to palpation present (GI) Skin: Wounds: wounds noted Other: Incision c/d/i. No surrounding redness/warmth. No hematoma. Mild ecchymosis. No wound dehiscence Neuro: Cognition (Neuro): normal cognition Other: NV intact aside from block. Moves toes. Sensation intact to light touch. +ankle dorsiflexion/plantarflexion. Extrem: Right upper extremity: normal to inspection, full ROM and normal capillary refill Left upper extremity: normal to inspection, full ROM and normal capillary refill Right lower extremity: normal to inspection and full ROM (ROM limited due to recent surgical intervention ) Left lower extremity: normal to inspection, normal capillary refill and knee Details: tenderness (diffuse ), swelling (moderate consistent to recent surgery ), abnormal ROM (limited due to recent surgery ) and ecchymosis (as expected with recent surgery. NO hematoma. ) Other: Incision left TKA dressing c/d/i. No hematoma. No signs of infection. No wound dehiscence. Psych: Mental Status: mental status grossly normal Objective Data Vital Signs Vital Signs: Vital Signs - 24 hr 12/14/20 09:34 12/14/20 09:45 12/14/20 10:00 Temperature 36.2 C L Pulse Rate 82 79 74 Respiratory Rate 10 L 14 14 Blood Pressure 164/109 H 180/96 H 158/87 H Pulse Oximetry 100 100 100 12/14/20 10:15 12/14/20 10:30 12/14/20 10:45 Temperature Pulse Rate 73 67 70 Respiratory Rate 13 13 15 Blood Pressure 150/77 H 158/74 H 158/66 H Pulse Oximetry 99 99 100 12/14/20 11:05 12/14/20 11:15 12/14/20 11:30 Temperature 36.4 C 36.4 C 36.5 C Pulse Rate 66 63 72 Respiratory Rate 13 16 16 Blood Pressure 143/82 H 144/67 H 146/90 H Pulse Oximetry 95 99 100 12/14/20 12:00 12/14/20 13:00 12/14/20 17:00 Temperature 36.1 C
--- NOTE | 2020-12-15 09:45 | PM.IMPN ---
Progress Note: A&P Assessment and Plan (1) Status post total left knee replacement: Code(s): Z96.652 - Presence of left artificial knee joint Status: Acute Assessment and Plan: Status post left knee replacement with Dr. Carroll POD 1 Management by ortho Pain control: oxycodone 5/325mg i tab PO Q4hr, Roxicodone 10mg PO Q4hr Antiemetic: Zofran 4mg IV Q4hr DVT: Coumadin Antibiotics: Cefazolin 2gm IV Q8hr x 3bags Bowel management: Colace 100mg PO BID PT/OT (2) Left knee DJD: Qualifiers: Osteoarthritis type: primary Qualified Code(s): M17.12 - Unilateral primary osteoarthritis, left knee Code(s): M17.12 - Unilateral primary osteoarthritis, left knee Status: Acute Assessment and Plan: See above (3) Diabetes: Code(s): E11.9 - Type 2 diabetes mellitus without complications Status: Acute Assessment and Plan: POC glucose 123 Continue home metformin Accu checks Sliding scale insulin Trend glucose Hypoglycemia protocol adjust medications as needed (4) Anxiety: Code(s): F41.9 - Anxiety disorder, unspecified Status: Acute Assessment and Plan: Continue home clonazepam 0.5mg PO PRN, Buspar 10mg PO TID Trend mood (5) Hyperlipidemia: Code(s): E78.5 - Hyperlipidemia, unspecified Status: Acute Assessment and Plan: Continue atorvastatin 10mg PO daily Consider lipid panel in the am Encourage low fat diet (6) History of deep vein thrombosis (DVT) of lower extremity: Code(s): Z86.718 - Personal history of other venous thrombosis and embolism Status: Acute Assessment and Plan: Hx of DVT in the lower extremity On warfarin at home Continue 4mg PO daily, increase dose to 6mg Lovenox 1mg/ml Trend PT/INR 13/1.1 Adjust medications to maintain INR of 2-3 Continue to trend PT/INR (7) GERD (gastroesophageal reflux disease): Code(s): K21.9 - Gastro-esophageal reflux disease without esophagitis Status: Acute Assessment and Plan: Take omeprazole 20mg PO Daily at home Protonix 40mg PO Daily order Time Spent With Patient Time with patient: 25 - 35 minutes Subjective Date/time seen: 12/15/20 09:45 Interval history: Patient is a 70 year old male here for an elective surgery of a left TKR with Dr. Waldron on 12/14/20. Patient is post op day 1. He has been walking and getting up and down from the chair. He denies bad pain, and stated that his pain is 1-2/10, and contributes that pain to be in association with the exercises that he has performed with PT. He has already done stairs and walked in the halls. He denies chest pain, shortness of breath, weakness, and fatigue. He did state that he had some nausea getting from the chair to the bed yesterday evening, but nothing since. Knee is swollen, but no shadowing or drainage noted on the dressing. Review of Systems Review of Systems: All systems reviewed & are unremarkable except as noted in HPI and below Exam Const: General: cooperative, healthy appearing, no acute distress, well developed, alert, awake, Physically active and tired appearing Nutritional Appearance: average body habitus and well nourished Orientation/consciousness: oriented to person, oriented to place, oriented to time and patient oriented x3 Limitations: physical limitations (Left knee replacement ) HENMT: Head: normal to inspection Ears: hearing grossly normal bilaterally General nose exam: Normal external nose present Mouth: Yes Normal oral and palatal mucosa present, Yes lip normal and Yes tongue normal Teeth and gingiva: abnormal tooth and associated gingiva and poor dentition Eyes: General: appearance normal, both eyes and all related structures Neck: Neck: normal visual inspection, full ROM, trachea midline and supple Chest: Chest palpation & inspection: normal inspection of the ama
--- NOTE | 2020-12-15 09:45 | P.PNIM_ITS ---
Progress Note: A&P Assessment and Plan (1) Status post total left knee replacement: Code(s): Z96.652 - Presence of left artificial knee joint Status: Acute Assessment and Plan: * Status post left knee replacement with Dr. Carroll * POD 1 * Management by ortho * Pain control: oxycodone 5/325mg i tab PO Q4hr, Roxicodone 10mg PO Q4hr * Antiemetic: Zofran 4mg IV Q4hr * DVT: Coumadin * Antibiotics: Cefazolin 2gm IV Q8hr x 3bags * Bowel management: Colace 100mg PO BID * PT/OT (2) Left knee DJD: Qualifiers: Osteoarthritis type: primary Qualified Code(s): M17.12 - Unilateral primary osteoarthritis, left knee Code(s): M17.12 - Unilateral primary osteoarthritis, left knee Status: Acute Assessment and Plan: * See above (3) Diabetes: Code(s): E11.9 - Type 2 diabetes mellitus without complications Status: Acute Assessment and Plan: * POC glucose 123 * Continue home metformin * Accu checks * Sliding scale insulin * Trend glucose * Hypoglycemia protocol * adjust medications as needed (4) Anxiety: Code(s): F41.9 - Anxiety disorder, unspecified Status: Acute Assessment and Plan: * Continue home clonazepam 0.5mg PO PRN, Buspar 10mg PO TID * Trend mood (5) Hyperlipidemia: Code(s): E78.5 - Hyperlipidemia, unspecified Status: Acute Assessment and Plan: * Continue atorvastatin 10mg PO daily * Consider lipid panel in the am * Encourage low fat diet (6) History of deep vein thrombosis (DVT) of lower extremity: Code(s): Z86.718 - Personal history of other venous thrombosis and embolism Status: Acute Assessment and Plan: * Hx of DVT in the lower extremity * On warfarin at home * Continue 4mg PO daily, increase dose to 6mg * Lovenox 1mg/ml * Trend PT/INR 13/1.1 * Adjust medications to maintain INR of 2-3 * Continue to trend PT/INR (7) GERD (gastroesophageal reflux disease): Code(s): K21.9 - Gastro-esophageal reflux disease without esophagitis Status: Acute Assessment and Plan: * Take omeprazole 20mg PO Daily at home * Protonix 40mg PO Daily order Time Spent With Patient Time with patient: 25 - 35 minutes Subjective Date/time seen: 12/15/20 09:45 Interval history: Patient is a 70 year old male here for an elective surgery of a left TKR with Dr. Waldron on 12/14/20. Patient is post op day 1. He has been walking and getting up and down from the chair. He denies bad pain, and stated that his pain is 1-2/10, and contributes that pain to be in association with the exercises that he has performed with PT. He has already done stairs and walked in the halls. He denies chest pain, shortness of breath, weakness, and fatigue. He did state that he had some nausea getting from the chair to the bed ye ster evening, but nothing since. Knee is swollen, but no shadowing or drainage noted on the dressing. Review of Systems Review of Systems: All systems reviewed & are unremarkable except as noted in HPI and below Exam Const: General: cooperative, healthy appearing, no acute distress, well developed, alert, awake, Physically active and tired appearing Nutritional Appearance: average body habitus and well nourished Orientation/consciousness: oriented to person, oriented to place, oriented to time and patient oriented x3 Limitations: ph
[2020-12-15] MEDS: ENOXAPARIN 80 MG/0.8 ML SYRINGE 75 MG SUB-Q (12:06)
--- NOTE | 2020-12-15 12:47 | PM.DS ---
DS: Admitting Diagnosis Discharge Date 12/15/20 Admitting Diagnosis Left knee DJD DS: Discharge Diagnosis Discharge Diagnosis (1) Status post total left knee replacement: Code(s): Z96.652 - Presence of left artificial knee joint Status: Acute Assessment and Plan: POD #1: Left TKA Continue PT/OT. WBAT. Walker. Fall Risk. Continue pain control. Ice. DVT prophylaxis. SCDs. Incentive Spirometry. Monitor dressing. Change prior to d/c. Dispo: Home with Home Health pending progress with PT/OT. (2) Diabetes: Code(s): E11.9 - Type 2 diabetes mellitus without complications Status: Acute Assessment and Plan: Monitor blood glucose levels. Diabetic diet. Medicaiton per hospitalist service. (3) History of deep vein thrombosis (DVT) of lower extremity: Code(s): Z86.718 - Personal history of other venous thrombosis and embolism Status: Acute Assessment and Plan: Warfarin resumed by Dr. Shepherd DS: Summary Hospital Course Reason for hospitalization: left total knee arthroplasty Hospital Course: 70-year-old male admitted status post left total knee arthroplasty for postoperative medical management, pain control and mobilization with physical and occupational therapy. Patient did very well on postop day 1. His pain is very well controlled. He worked well with PT and OT and was deemed safe to be discharged home with home health. Patient was on Coumadin preoperatively which was bridged with Lovenox prior to surgical intervention. Patient had a higher dose of warfarin postoperatively. Her doctor Cora, will discharge patient home on original dose of Coumadin. No additions at this time. Patient to continue total knee arthroplasty precautions. Reviewed these in depth. Fall precautions. Walker at all times for ambulation. Follow up in the outpatient orthopedic clinic in approximately 3 weeks. Status at Discharge Functional status at discharge: uses cane/walker Overall status at discharge: patient is progressing back to baseline Time Spent with Patient Time attestation: Total time spent providing and/or coordinating discharge services: Time spent: Less than 30 minutes Exam Const: General: comfortable and no acute distress Resp: Effort & Inspection: normal respiratory effort Cardio: Rate: regular rate Rhythm: regular rhythm GI: GI Palp: Yes Soft to palpation, No Tenderness to palpation present (GI) and No Guarding due to palpation present (GI) Skin: Wounds: wounds noted Other: Incision c/d/i. No surrounding redness/warmth. No hematoma. Mild ecchymosis. No wound dehiscence Neuro: Cognition (Neuro): normal cognition Other: NV intact aside from block. Moves toes. Sensation intact to light touch. +ankle dorsiflexion/plantarflexion. Extrem: Right upper extremity: normal to inspection, full ROM and normal capillary refill Left upper extremity: normal to inspection, full ROM and normal capillary refill Right lower extremity: normal to inspection and full ROM (ROM limited due to recent surgical intervention ) Left lower extremity: normal to inspection, normal capillary refill and knee Details: tenderness (diffuse ), swelling (moderate consistent to recent surgery ), abnormal ROM (limited due to recent surgery ) and ecchymosis (as expected with recent surgery. NO hematoma. ) Other: Incision left TKA dressing c/d/i. No hematoma. No signs of infection. No wound dehiscence. Psych: Mental Status: mental status grossly normal DS: Data Data Completed and Pending Labs on day of discharge: Labs from last 24 hours 12/15/20 12/15/20 12/15/20 07:21 05:35 05:35 WBC RBC Hgb Hct MCV MCH MCHC RDW Plt Count MPV Immature Gran % (Auto) Neut % (Auto) Lymph % (Auto) [place] % (Auto) Eos % (Auto) Baso % (Auto) Lymph # (Auto) [place] # (Auto) Eos # (Auto) Baso # (Auto) Abs Immat Gran (auto) Absolute Neuts (a
[2020-12-15 13:00] VITALS: BP 128/62; PULSE 68; RESP 18; TEMP 37.1; O2SAT 100
== END 2020-12-15 14:43 | disposition home health service (06) ==
LOC: ANHSURGERY 06:08 → ANH2MED 11:11
PROVIDERS: PCP Family Medicine; Visit Provider Orthopaedic Surgery
PROC: (CPT 27447; principal; 2020-12-14 07:30)
DX: M17.12 Unilateral primary osteoarthritis, left knee (principal); G89.18 Other acute postprocedural pain; E11.9 Type 2 diabetes mellitus without complications; D68.51 Activated protein C resistance; K21.9 Gastro-esophageal reflux disease without esophagitis; E78.5 Hyperlipidemia, unspecified; F41.9 Anxiety disorder, unspecified; Z86.718 Personal history of other venous thrombosis and embolism; Z79.01 Long term (current) use of anticoagulants; Z79.84 Long term (current) use of oral hypoglycemic drugs; Z87.891 Personal history of nicotine dependence
CPT/HCPCS: 27447; 64447; 36415; 73560; 80048; 82948; 83735; 85025; 85610; 97110; 97116; 97162; 97165; 97530; A9270; C1713; C1776; J0171; J0690; J1100; J1170; J1650; J2270; J2795; J3010; J7120

== ENCOUNTER 2020-12-20 11:57 | Outpatient (NON) | payer MEDICARE, OTHER, SELFPAY ==
[2020-12-20 12:37] LABS: INR 1.2; Prothrombin Time 14.9 Seconds (11.1-14.7)
== END 2020-12-20 11:58 | disposition home or self-care (01) ==
PROVIDERS: PCP Family Medicine; Visit Provider Family Medicine
DX: K21.9 Gastro-esophageal reflux disease without esophagitis (principal); E11.9 Type 2 diabetes mellitus without complications; Z96.652 Presence of left artificial knee joint; Z47.1 Aftercare following joint replacement surgery; Z51.81 Encounter for therapeutic drug level monitoring; Z79.899 Other long term (current) drug therapy
CPT/HCPCS: 85610

== ENCOUNTER 2020-12-21 11:21 | Emergency (ER) | payer MEDICARE, OTHER, SELFPAY ==
--- NOTE | ~2020-12-21 | US_ITS ---
EXAMINATION: US venous doppler [facility] DATE: 12/21/2020 13:01 INDICATION: Deep venous thrombosis TECHNIQUE: Grayscale ultrasound images without and with compression and Doppler ultrasound images of the left lower extremity veins were obtained. COMPARISON: None. FINDINGS: The visualized portions of left common femoral vein, profunda (deep) femoral vein, femoral vein, popl iteal vein, peroneal veins, posterior tibial veins, gastrocnemius vein and greater saphenous vein out flow are patent. IMPRESSION: 1. No deep venous thrombosis in the left lower limb. Reviewed, dictated and finalized at location A.
[2020-12-21 11:24] VITALS: BP 140/51; PULSE 95; RESP 18; TEMP 35.9; O2SAT 99
[2020-12-21 12:43] LABS: Anion Gap 8 mmol/L (8-16); Blood Urea Nitrogen 25 mg/dL (9-20); Calcium 8.9 mg/dL (8.4-10.2); Carbon Dioxide 29 mmol/L (22-30); Chloride 101 mmol/L (98-107); Estimated CRCL calculation 74 ml/min; Estimated Glomerular Filt Rate > 60; Glucose 127 mg/dL (65-110); Sodium 138 mmol/L (137-145)
[2020-12-21 12:44] LABS: INR 1.3; Prothrombin Time 15.7 Seconds (11.1-14.7)
[2020-12-21 12:45] LABS: Partial Thromboplastin Time 27.9 SECONDS (22.3-36.8)
[2020-12-21 13:32] LABS: Basophils Absolute Auto 0.1 K/mm3 (0.0-0.1); Basophils Percent Auto 0.9 % (0.2-1.2); Eosinophils Absolute Auto 0.3 K/mm3 (0-0.3); Eosinophils Percent Auto 3.6 % (0-4.4); Hematocrit 36.8 % (42.0-52.0); Hemoglobin 12.1 g/dL (14.0-18.0); Immature Granulocyte Absolute 0.07 K/mm3 (0.00-0.031); Immature Granulocyte Percent A 0.9 % (0-0.5); Lymphocytes Absolute Auto 1.74 K/mm3 (0.9-3.2); Lymphocytes Percent Auto 21.7 % (18.3-44.2); Mean Corpuscular HGB Conc 32.9 g/dl (32-36); Mean Corpuscular Hemoglobin 29.4 pg (26-34); Mean Corpuscular Volume 89.5 fl (80-100); Mean Platelet Volume 9.2 fl (7.4-10.4); Monocytes Absolute Auto 0.7 K/mm3 (0.1-0.6); Monocytes Percent Auto 8.6 % (2.6-8.5); Neutrophils Absolute Auto 5.2 K/mm3 (1.3-6.7); Neutrophils Percent Auto 64.3 % (45.5-73.1); Platelet Count Result 312 k/mm3 (150-375); Red Blood Count 4.11 M/mm3 (4.6-6.20); Red Cell Distribution Width 13.1 % (11.5-14.5)
--- NOTE | 2020-12-21 13:45 | ED.GENADULT ---
HPI - General Adult General Chief complaint: Extremity Problem,Nontraumatic <DIONISIO Ny Last Filed: 12/21/20 13:50> Stated complaint: left calf pain <DIONISIO Ny Last Filed: 12/21/20 13:50> Time Seen by Provider: 12/21/20 11:40 <DIONISIO Ny Last Filed: 12/21/20 13:50> Source: patient and RN notes reviewed <DIONISIO Ny Last Filed: 12/21/20 13:50> Mode of arrival: ambulatory <DIONISIO Ny Last Filed: 12/21/20 13:50> Limitations: no limitations <DIONISIO Ny Last Filed: 12/21/20 13:50> History of Present Illness HPI narrative: Patient is a 70-year-old male who presents per request of primary care for evaluation of rule out DVT he is on warfarin was advised to increase his dose to 5 mg/day he took 4 mg last night he was found to be subtherapeutic yesterday with his INR presents today noting that he has swelling has history of factor V [place] is currently on warfarin for this he notes that the leg is swollen but he had recent knee surgery and states that it has been swollen and denies any change in the degree of pain or any loss of feeling or function in the extremity or any injury or trauma <DIONISIO Ny Last Filed: 12/21/20 13:50> Related Data Home medications: Home Medications Medication Instructions Recorded Confirmed atorvastatin 10 mg tablet 10 mg PO QAM 10/26/19 12/14/20 buspirone 10 mg tablet 10 mg PO TID 10/26/19 12/14/20 clonazepam 0.5 mg tablet 0.5 mg PO PRN PRN 10/26/19 12/14/20 sertraline 50 mg tablet 25 mg PO QAM 10/26/19 12/14/20 warfarin 4 mg tablet 4 mg PO DAILY tablet 10/26/19 12/14/20 omeprazole magnesium [Prilosec OTC] 20 mg PO PRN PRN 01/04/20 12/14/20 metformin 500 mg PO BID 04/29/20 12/14/20 <DIONISIO Ny Last Filed: 12/21/20 13:50> Allergies/adverse reactions: Allergies Allergy/AdvReac Type Severity Reaction Status Date / Time No Known Allergies Allergy Verified 12/21/20 11:34 <Justin Crespo PA-C - Last Filed: 12/21/20 13:50> Review of Systems Review of Systems: All systems reviewed & are unremarkable except as noted in HPI and below <Justin Crespo PA-C - Last Filed: 12/21/20 13:50> PMFSH Past Medical History Medical History: Medical History Anxiety Cataract Diabetes DVT of lower limb, acute Factor V Leiden Hernia History of gastroesophageal reflux (GERD) Hypercholesteremia Left knee DJD Left shoulder pain Panic attacks Vertigo Vision loss <Justin Crespo PA-C - Last Filed: 12/21/20 13:50> Surgical History Surgical History: Surgical History H/O right inguinal hernia repair History of eye surgery LT cataract removed History of total right knee replacement <Justin Crespo PA-C - Last Filed: 12/21/20 13:50> Family History Family History: Family History Father , at age 99 Old age Mother , April 03, 1997 Cancer Other Carcinoma of colon Family history of alcoholism Family history of lung cancer <Justin Crespo PA-C - Last Filed: 12/21/20 13:50> Social History Social History: Social History Smoking status: Never smoker Tobacco type: cigarettes Second hand tobacco smoke exposure: No Smoking end date: 03/04/1967 Additional smoking assessment comments: DENIES ANY FORM OF TOBACCO/NICOTINE USE Alcohol intake: never Substance use: never Gender identity (if verbalized by the patient): Male Sexual Orientation (if Verbalized by the Patient): Straight or Heterosexual Spiritual care concerns: No <DIONISIO Ny Last Filed: 12/21/20 13:50> Exam Narrative: GENERAL: Well-appearing, well-nourished, and in no
[2020-12-21 14:05] VITALS: BP 154/95; PULSE 79; RESP 16; TEMP 36.9; O2SAT 100
== END 2020-12-21 14:15 | disposition home or self-care (01) ==
PROVIDERS: Emergency Medicine Emergency Medical Services; Emergency Provider General Practice; PCP Family Medicine
DX: M79.605 Pain in left leg (principal); F41.9 Anxiety disorder, unspecified; E11.9 Type 2 diabetes mellitus without complications; K21.9 Gastro-esophageal reflux disease without esophagitis; E78.5 Hyperlipidemia, unspecified; Z79.84 Long term (current) use of oral hypoglycemic drugs; Z79.01 Long term (current) use of anticoagulants
CPT/HCPCS: 36415; 80048; 85025; 85610; 85730; 93971; 99284

== ENCOUNTER 2023-06-12 16:49 | Emergency (ER) | payer MEDICARE, OTHER, SELFPAY ==
--- NOTE | 2023-06-12 16:58 | ED.NAVMDI ---
HPI - Nausea/Vomiting/Diarrhea General Chief complaint: Nausea/Vomiting/Diarrhea Stated complaint: Nausea Time Seen by Provider: 06/12/23 16:58 Source: patient and RN notes reviewed Mode of arrival: ambulatory Limitations: no limitations History of Present Illness HPI Narrative: 72-year-old male with hx Factor V, DVT, DM, vertigo presented for complaint of nausea and vomiting today. States emesis is yellow bile. Endorses epigastric area tenderness, body aches, fatigue and chills. Unable to tolerate food today. He took omeprazole today. LBM today, normal per patient. Denies hematochezia or melena, or hematemesis. He denies sick contacts. Denies cough, shortness of breath, wheezing, chest pain, heart racing, dizziness, or fever. Related Data Home Medications Medication Instructions Recorded Confirmed atorvastatin 10 mg tablet 10 mg PO QAM 10/26/19 06/12/23 buspirone 10 mg tablet 10 mg PO TID 10/26/19 06/12/23 clonazepam 0.5 mg tablet 0.5 mg PO PRN PRN Anxiety 10/26/19 06/12/23 warfarin 4 mg tablet 4 mg PO DAILY 10/26/19 06/12/23 omeprazole magnesium 20 mg 20 mg PO PRN PRN Heartburn 01/04/20 06/12/23 tablet,delayed release (Prilosec OTC) metformin 500 mg tablet 500 mg PO BID 04/29/20 06/12/23 gabapentin 300 mg capsule 300 mg PO TID 06/12/23 06/12/23 guanfacine 2 mg tablet 2 mg PO BID 06/12/23 06/12/23 venlafaxine 75 mg capsule,extended 75 mg PO DAILY 06/12/23 06/12/23 release 24 hr Allergies Allergy/AdvReac Type Severity Reaction Status Date / Time No Known Allergies Allergy Verified 06/12/23 16:53 Review of Systems Review of Systems: CONSTITUTIONAL: Denies fever, reports body aches, chills ENT: Denies rhinorrhea, congestion CARDIOVASCULAR: Denies chest pain, palpitations, or edema. RESPIRATORY: Denies cough or dyspnea. GASTROINTESTINAL: Endorses abdominal pain, nausea, vomiting, Denies diarrhea, hematochezia, melena, hematemesis GENITOURINARY: Denies hematuria, or CVA tenderness. SKIN: Denies rash, itching, or wounds. MUSCULOSKELETAL: Denies back pain, joint pain, or myalgia. NEUROLOGIC: Denies headache, numbness, tingling, or weakness. All systems reviewed & are unremarkable except as noted in HPI and below PMFSH Past Medical History Medical History Anxiety Cataract Diabetes DVT of lower limb, acute Factor V Leiden Hernia History of gastroesophageal reflux (GERD) Hypercholesteremia Left knee DJD Left shoulder pain Panic attacks Vertigo Vision loss Surgical History Surgical History H/O right inguinal hernia repair History of eye surgery LT cataract removed History of total right knee replacement 2015 Hx of repair of left rotator cuff 05/06/2020 Family History Family History Father , at age 99 Old age Mother , April 03, 1997 Cancer Other Carcinoma of colon Family history of alcoholism Family history of lung cancer Social History Social History Smoking status: Former smoker Tobacco type: cigarettes Second hand tobacco smoke exposure: No Smoking end date: 03/04/1967 Additional smoking assessment comments: DENIES ANY FORM OF TOBACCO/NICOTINE USE Alcohol intake: never Substance use: never Living arrangements: with family Occupation/Education: retired Gender identity (if verbalized by the patient): Male Sexual Orientation (if Verbalized by the Patient): Straight or Heterosexual Spiritual care concerns: No Comments At time of signature, I have reviewed and agree with nursing past medical, surgical, social and family history unless otherwise noted. Please see nursing chart for further information. There is no relevant family history pertinent to the presenting complaint Exam Narrative: GENERAL
[2023-06-12 16:59] VITALS: BP 141/80; PULSE 79; RESP 16; TEMP 36.5; O2SAT 100
--- NOTE | 2023-06-12 17:16 | ECG_ITS ---
Measurements Intervals [place] Rate: 63 P: * ID: * QRS: -40 QRSD: 105 T: 56 QT: 389 QTc: 396 Interpretive Statements SINUS RHYTHM WITH OCCASIONAL VENTRICULAR PREMATURE COMPLEXES IN A BIGEMINAL PATTERN MARKED LEFT AXIS DEVIATION [QRS AXIS < -30] NONSPECIFIC T-WAVE ABNORMALITY ABNORMAL ECG SEE SCANNED COPY FOR SIGNATURE MTDD
== END 2023-06-12 17:50 | disposition short-term general hospital (02) ==
LOC: EXPTROY 16:52
PROVIDERS: Emergency Provider Nurse Practitioner Family; PCP Family Medicine
DX: R11.2 Nausea with vomiting, unspecified (principal); R94.31 Abnormal electrocardiogram [ECG] [EKG]; Z20.822 Contact with and (suspected) exposure to COVID-19; Z87.891 Personal history of nicotine dependence; E11.9 Type 2 diabetes mellitus without complications; Z79.84 Long term (current) use of oral hypoglycemic drugs; K21.9 Gastro-esophageal reflux disease without esophagitis; E78.00 Pure hypercholesterolemia, unspecified; M17.12 Unilateral primary osteoarthritis, left knee; Z86.718 Personal history of other venous thrombosis and embolism; D68.51 Activated protein C resistance; Z96.651 Presence of right artificial knee joint; F41.9 Anxiety disorder, unspecified
CPT/HCPCS: 87426; 87804; 93005; 99215; G0463

== ENCOUNTER 2023-06-12 18:12 | Emergency (ER) | payer MEDICARE, OTHER, SELFPAY ==
--- NOTE | ~2023-06-12 | CT_ITS ---
EXAMINATION: CT abdomen pelvis w con DATE: 06/12/2023 21:10 INDICATION: Nausea. TECHNIQUE: Computed tomography (CT) of the abdomen and pelvis was performed with 100 cc Omnipaque 350 intravenous contrast. The dose-length product was 373.41 mGy-cm. Automated exposure control and iter ative reconstruction technique were employed. COMPARISON: None. FINDINGS: Heart size normal. No significant pleural or pericardial effusion. Fatty infiltration of th e liver. Calcified granulomas of the spleen. There is an accessory splenule in the left upper abdomen . Fatty infiltration of the liver. Colonic diverticulosis without evidence for diverticulitis. No sig nificant vascular abnormality. No lymphadenopathy. Gallbladder is present. No free air or free fluid. There is dextroscoliosis of the lumbar spine. There are left renal cysts. IMPRESSION: 1. No acute abdominal abnormality. Reviewed, dictated and finalized at location A.
--- NOTE | ~2023-06-12 | XR_ITS ---
XR abdomen/kub 1V 06/12/2023 20:17 INDICATION: Nausea TECHNIQUE: KUB COMPARISON: None FINDINGS: Bowel gas pattern is normal. There is no evidence of free air, mass, organomegaly, ascites or obstruction. No abnormal calculi are seen. The bones appear intact. IMPRESSION: 1: No acute abdominal abnormality identified. Reviewed, dictated and finalized at location A.
[2023-06-12 18:11] VITALS: PULSE 68; RESP 18; TEMP 36.3; O2SAT 97
--- NOTE | 2023-06-12 18:17 | ECG_ITS ---
SEE SCANNED COPY FOR CONFIRMED REPORT MTDD
--- NOTE | 2023-06-12 19:28 | ED.RECABL ---
HPI - Recheck/Abnormal Lab/Rx General Chief Complaint: Recheck/Abnormal Lab/Rx Stated Complaint: nausea, abn ekg Time Seen by Provider: 06/12/23 19:28 Source: patient and EMS Mode of arrival: EMS Limitations: no limitations History of Present Illness HPI narrative: 72 YEARS OLD WHITE MALE CAME TO THE ED BY AMBULANCE FROM URGENT CARE WITH EKG SHOWING ATRIAL FIBRILLATION. PATIENT WENT TO URGENT CARE TODAY BECAUSE OF FEELING NAUSEATED TODAY, HAD ZOFRAN BY AMBULANCE PRIOR TO ARRIVAL, CURRENTLY HE DENYING ANY SYMPTOMS AND WOULD LIKE TO EAT. HISTORY OF DIABETES, HYPERLIPIDEMIA, HYPOTHYROIDISM, FACTOR 5 DEFICIENCY SYNDROME, LEFT LOWER EXTREMITY DEEP VEIN THROMBOSIS ON COUMADIN. Related Data Home Medications Medication Instructions Recorded Confirmed atorvastatin 10 mg tablet 10 mg PO QAM 10/26/19 06/12/23 buspirone 10 mg tablet 10 mg PO TID 10/26/19 06/12/23 clonazepam 0.5 mg tablet 0.5 mg PO PRN PRN Anxiety 10/26/19 06/12/23 warfarin 4 mg tablet 4 mg PO DAILY 10/26/19 06/12/23 omeprazole magnesium 20 mg 20 mg PO PRN PRN Heartburn 01/04/20 06/12/23 tablet,delayed release (Prilosec OTC) metformin 500 mg tablet 500 mg PO BID 04/29/20 06/12/23 gabapentin 300 mg capsule 300 mg PO TID 06/12/23 06/12/23 guanfacine 2 mg tablet 2 mg PO BID 06/12/23 06/12/23 venlafaxine 75 mg capsule,extended 75 mg PO DAILY 06/12/23 06/12/23 release 24 hr Allergies Allergy/AdvReac Type Severity Reaction Status Date / Time No Known Allergies Allergy Verified 06/12/23 16:53 Review of Systems Review of Systems: All systems reviewed & are unremarkable except as noted in HPI and below PMFSH Past Medical History Medical History Anxiety Cataract Diabetes DVT of lower limb, acute Factor V Leiden Hernia History of gastroesophageal reflux (GERD) Hypercholesteremia Left knee DJD Left shoulder pain Panic attacks Vertigo Vision loss Surgical History Surgical History H/O right inguinal hernia repair History of eye surgery LT cataract removed History of total right knee replacement 2015 Hx of repair of left rotator cuff 05/06/2020 Family History Family History Father , at age 99 Old age Mother , April 03, 1997 Cancer Other Carcinoma of colon Family history of alcoholism Family history of lung cancer Social History Social History Smoking status: Former smoker Tobacco type: cigarettes Second hand tobacco smoke exposure: No Smoking end date: 03/04/1967 Additional smoking assessment comments: DENIES ANY FORM OF TOBACCO/NICOTINE USE Alcohol intake: never Substance use: never Living arrangements: with family Occupation/Education: retired Gender identity (if verbalized by the patient): Male Sexual Orientation (if Verbalized by the Patient): Straight or Heterosexual Spiritual care concerns: No Exam Narrative: GENERAL APPEARANCE: WELL-DEVELOPED, WELL-NOURISHED SKIN: NORMAL COLOR HEAD: NORMOCEPHALIC, NONTRAUMATIC EYES: CLEAR CONJUNCTIVA ENT: OROPHARYNX NORMAL, EARS NORMAL, NOSE NORMAL NECK: SUPPLE, NONTENDER CHEST AND RESPIRATORY: AIRWAY PATENT, NO RESPIRATORY DISTRESS, NO ACCESSORY MUSCLE USE HEART: REGULAR RATE/RHYTHM ABDOMEN: SOFT, NONTENDER, NO ORGANOMEGALY, QUIET BOWEL SOUNDS VASCULAR: NORMAL PERIPHERAL PULSES, NORMAL CAPILLARY REFILL. MUSCULOSKELETAL: NORMAL RANGE OF MOTION, NONTENDER BACK NEUROLOGIC: ALERT AND ORIENTED ?3, VERTICA ARCHITECT IS NORMAL TESTED, NO GROSS MOTOR DEFICIT Cou
[2023-06-12] MEDS: SODIUM CHLORIDE 0.9% IV 1,000 ML 999 ML IV CONT (20:22)
[2023-06-12 20:30] LABS: Basophils Absolute Auto 0.1 K/mm3 (0.0-0.1); Basophils Percent Auto 0.7 % (0.2-1.2); Eosinophils Absolute Auto 0.1 K/mm3 (0-0.3); Eosinophils Percent Auto 0.9 % (0-4.4); Hematocrit 40.6 % (42.0-52.0); Hemoglobin 13.5 g/dL (14.0-18.0); Immature Granulocyte Absolute 0.02 K/mm3 (0.00-0.031); Immature Granulocyte Percent A 0.2 % (0-0.5); Lymphocytes Absolute Auto 2.11 K/mm3 (0.9-3.2); Lymphocytes Percent Auto 21.1 % (18.3-44.2); Mean Corpuscular HGB Conc 33.3 g/dl (32-36); Mean Corpuscular Volume 87.3 fl (80-100); Mean Platelet Volume 9.1 fl (7.4-10.4); Monocytes Absolute Auto 0.7 K/mm3 (0.1-0.6); Monocytes Percent Auto 6.7 % (2.6-8.5); Neutrophils Absolute Auto 7.1 K/mm3 (1.3-6.7); Neutrophils Percent Auto 70.4 % (45.5-73.1); Platelet Count Result 243 k/mm3 (150-375); Red Blood Count 4.65 M/mm3 (4.6-6.20); Red Cell Distribution Width 13.3 % (11.5-14.5)
[2023-06-12 20:40] LABS: Alanine Aminotransferase 20 U/L (6-50); Albumin Level 4.2 g/dL (3.5-5.1); Alkaline Phosphatase 98 U/L (38-126); Anion Gap 8 mmol/L (4-12); Aspartate Amino Transferase 28 U/L (17-59); Bilirubin,Total 0.9 mg/dL (0.2-1.3); Blood Urea Nitrogen 21 mg/dL (9-20); Calcium 9.1 mg/dL (8.4-10.2); Carbon Dioxide 23 mmol/L (22-30); Chloride 107 mmol/L (98-107); Estimated CRCL calculation 81 ml/min; Estimated Glomerular Filt Rate > 60; Glucose 120 mg/dL (65-110); INR 1.4; Lipase 112 U/L (23-300); Prothrombin Time 17.6 Seconds (11.1-14.7); Sodium 138 mmol/L (137-145)
[2023-06-12 20:41] LABS: Partial Thromboplastin Time 26.3 Seconds (22.3-36.8)
[2023-06-12 20:51] LABS: Troponin I 0.016 ng/mL (0.000-0.034)
[2023-06-12 22:34] VITALS: BP 139/84; PULSE 82; RESP 16; TEMP 36.7; O2SAT 98
== END 2023-06-12 22:35 | disposition home or self-care (01) ==
PROVIDERS: Emergency Provider Emergency Medicine; PCP Family Medicine
DX: R11.0 Nausea (principal); E11.9 Type 2 diabetes mellitus without complications; E03.9 Hypothyroidism, unspecified; E78.00 Pure hypercholesterolemia, unspecified; D68.51 Activated protein C resistance; K21.9 Gastro-esophageal reflux disease without esophagitis; M17.12 Unilateral primary osteoarthritis, left knee; F41.9 Anxiety disorder, unspecified; Z96.651 Presence of right artificial knee joint; Z86.718 Personal history of other venous thrombosis and embolism; Z87.891 Personal history of nicotine dependence; Z98.42 Cataract extraction status, left eye; Z79.01 Long term (current) use of anticoagulants; Z79.84 Long term (current) use of oral hypoglycemic drugs; I44.0 Atrioventricular block, first degree
CPT/HCPCS: 36415; 74018; 74177; 80053; 83690; 84484; 85025; 85610; 85730; 87426; 87804; 93005; 96360; 99284; J7030; Q9967